=== PATIENT | female | born 1970 | race Caucasian/White ===

== ENCOUNTER 2024-04-16 10:44 | Emergency (ER) | payer OTHER ==
[2024-04-16 11:33] LABS: Absolute Lymphocytes (CBC) 1.3 K/uL (0.7-4.9); Absolute Monocytes 0.5 K/uL (0.1-1.3); Basophils % 0.6 % (0-1.3); Eosinophils % 0.9 % (0-4.4); Hematocrit 35.3 % (36.0-45.0); Hemoglobin 11.4 g/dL (12.0-15.0); Lymphocytes % 26.5 % (15.3-44.8); MCHC 32.2 g/dL (32.0-36.0); MCV 83.8 fL (80-100); Monocytes % 10.3 % (3.3-12.3); Neutrophils % 61.7 % (41.7-73.7); Platelets 158 thou/uL (152-406); RBC Red Blood Cell Count 4.21 M/uL (3.86-4.86); Red Cell Distribution Width 14.9 % (12.1-15.2)
[2024-04-16 11:58] LABS: ALT/SGPT 17 U/L (13-56); Albumin 3.5 g/dL (3.4-5.0); Albumin/Globulin Ratio 1.2 (1.1-1.8); Alkaline Phosphatase 58 U/L (45-117); Anion Gap 5.5 mEq/L (5.0-15.0); BUN Blood Urea Nitrogen 15 mg/dL (7-18); Bicarbonate 30 mEq/L (21-32); Bilirubin Total 0.3 mg/dL (0.2-1.0); Glomerular Filtration Rate 84 ml/min (=/>90); Glucose Level 63 mg/dL (74-106); Magnesium 2.2 mg/dL (1.6-2.4); Potassium 3.5 mEq/L (3.5-5.1); Protein, Total 6.5 g/dL (6.4-8.2); Sodium Level 142 mEq/L (136-145); Thyroid Stimulating Hormone 0.182 uIU/mL (0.358-3.740)
[2024-04-16 12:03] LABS: AST/SGOT < 10 U/L (15-37); Bilirubin Direct < 0.2 mg/dL (0-0.2); Bilirubin Indirect, Calculated 0.1 mg/dL (0.2-0.8); Troponin High Sensitivity < 3.0 pg/mL (<58.9)
--- NOTE | 2024-04-16 12:11 | RAD REPORT ---
Procedure: Chest Single View HISTORY: Palpitations COMPARISON: none FINDINGS: The lungs appear clear of acute infiltrate.. Lungs are moderately hyperaerated. No significant pleural effusion noted. The heart is normal size. IMPRESSION: No acute abnormality is displayed.
--- NOTE | 2024-04-16 12:36 | EDPHYS ---
Physician Documentation [facility] Name: Avril Avelar Age: 54 yrs Sex: Female : 1970 Arrival Date: 04/16/2024 Time: 10:44 Bed 6 Private MD: ED Physician Juan Almonte HPI: 04/16 11:14 This 54 yrs old Female presents to ER via Unassigned with complaints of Palpitations, rt Shortness Of Breath. 11:14 Patient presents to the ED with 2-weeks of palpitations, shortness of breath. This is rt intermittent, episodes lasting about 3 hours, increasing in frequency. Has an appoint with a oncology navigator for a monitor on Friday. States that her Apple Watch told her that she was in A-fib. Denies other acute complaints at this time, symptoms are moderate in severity, no other aggravating or elevating factors.. 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 - Infectious Disease History:: Denies. - Family history:: not pertinent. - Social history:: Smoking status: Patient denies any tobacco usage or history of. Patient uses alcohol, occasionally. ROS: 11:14 Constitutional: Negative for fever, chills, and weight loss, Abdomen/GI: Negative for rt abdominal pain, nausea, vomiting, diarrhea, and constipation, MS/Extremity: Negative for injury and deformity, Skin: Negative for injury, rash, and discoloration, Neuro: Negative for headache, weakness, numbness, tingling, and seizure, 11:14 Cardiovascular: Positive for palpitations, Negative for chest pain, 11:14 Respiratory: Positive for shortness of breath, Negative for cough, Exam: 11:14 Constitutional: This is a well developed, well nourished patient who is awake, alert, rt and in no acute distress. Head/Face: Normocephalic, atraumatic. Chest/axilla: Normal chest wall appearance and motion. Nontender with no deformity. No lesions are appreciated. Cardiovascular: Regular rate and rhythm with a normal S1 and S2. No gallops, murmurs, or rubs. Normal PMI, no JVD. No pulse deficits. Respiratory: Lungs have equal breath sounds bilaterally, clear to auscultation and percussion. No rales, rhonchi or wheezes noted. No increased work of breathing, no retractions or nasal flaring. Abdomen/GI: Soft, non-tender, with normal bowel sounds. No distension or tympany. No guarding or rebound. No evidence of tenderness throughout. Skin: Warm, dry with normal turgor. Normal color with no rashes, no lesions, and no evidence of cellulitis. MS/ Extremity: Pulses equal, no cyanosis. Neurovascular intact. Full, normal range of motion. Neuro: Awake and alert, GCS 15, oriented to person, place, time, and situation. Cranial nerves II-XII grossly intact. Motor strength 5/5 in all extremities. Sensory grossly intact. Cerebellar exam normal. Normal gait. 12:57 ECG was reviewed by the Attending Physician. rt Vital Signs: 11:15 BP 130 / 63; Pulse 84; Resp 17; Temp 97.6(O); Pulse Ox 99% on R/A; MAP 83 mmHg; Weight tm6 70.31 kg; Height 5 ft. 10 in. ; Pain 0/10; 12:39 BP 116 / 90; Pulse 68; Resp 15; Pulse Ox 100% ; ko1 11:15 Body Mass Index 22.24 (70.31 kg, 177.8 cm) tm6 11:15 Pain Scale: Adult tm6 MDM: 11:04 Medical Screening Exam initiated rt 12:52 Differential diagnosis: A-fib, hyperthyroidism, dysrhythmia, sinus tachycardia. Data rt reviewed: vital signs, nurses notes, lab test result(s), EKG, radiologic studies. Consideration of Admission/Observation Escalation of care including admission/observation considered. Patient is no dysrhythmia in the ED, labs reveal low TSH, otherwise unremarkable. She has no vital signs suggestive of thyrotoxicosis, this may be the etiology of her symptoms however, she was instructed to follow-up with her oncology navigator as previously scheduled and with her primary care provider for further management of her thyroid medications.. Independent interpretation of the following test(s) in the Emergency Department X-Ray: My interpretation is No infiltrate seen on my interpretation of x-ray images. Test considered but Not performed: CT: Low suspicion for pulmonary embolism, CT angiogram not indicated. Care significantly affected by the following chronic conditions: Hypothyroidism. Counseling: I had a detailed discussion with the patient and/or guardian regarding the historical points, exam findings, and any diagnostic results supporting the discharge/admit diagnosis, lab results, radiology results, the need for outpatient follow up, to return to the emergency department if symptoms worsen or persist or if there are any questions or concerns that arise at home. Response to treatment: the patient's symptoms have markedly improved after treatment. 04/16 11:11 Order name: Basic Metabolic Panel; Complete Time: 12:18 rt 04/16 11:11 Order name: CBC with Diff; Complete Time: 12:18 rt 04/16 11:11 Order name: LFT's; Complete Time: 12:18 rt 04/16 11:11 Order name: Magnesium; Complete Time: 12:18 rt 04/16 11:11 Order name: Troponin HS; Complete Time: 12:18 rt 04/16 11:11 Order name: TSH; Complete Time: 12:18 rt 04/16 11:11 Order name: XRAY Chest (1 view); Complete Time: 12:18 rt 04/16 11:11 Order name: EKG; Complete Time: 11: rt 04/16 11:11 Order name: Cardiac monitoring; Complete Time: rt 04/16 11:11 Order name: EKG - Nurse/Tech; Complete Time: rt 04/16 11:11 Order name: IV Saline Lock; Complete Time: rt 04/16 11:11 Order name: Labs collected and sent; Complete Time: rt 04/16 11:11 Order name: O2 Per Protocol; Complete Time: rt 04/16 11:11 Order name: O2 Sat Monitoring; Complete Time: : rt EC:57 Rate is 75 beats/min. Rhythm is regular, Normal Sinus Rhythm with No ectopy. Right axis rt deviation noted. [place] interval is normal. QRS interval is normal. QT interval is normal. No Q waves. No ST changes noted. Interpreted by me. Administered Medications: No medications were administered Disposition Summary: 04/16/24 12:35 Discharge Ordered Notes: Location: Home rt Problem: new rt Symptoms: have improved rt Condition: Stable rt Diagnosis - Palpitations rt Followup: rt - With: Private Physician - When: 2 - 3 days - Reason: Discharge Instructions: - Discharge Summary Sheet rt - Atrial Fibrillation rt - Palpitations rt Forms: - Medication Reconciliation Form rt - Antibiotic Education rt - Prescription Opioid Use rt - Patient Portal Instructions rt - Leadership Thank You Letter rt Signatures: Dispatcher [employer] EDJuan De La Cruz MD MD rt Emile Pedraza RN RN tm6
--- NOTE | 2024-04-16 12:36 | ER ---
Nurse's Notes [facility] Name: Avril Avelar Age: 54 yrs Sex: Female : 1970 Arrival Date: 04/16/2024 Time: 10:44 Bed 6 Private MD: Diagnosis: Palpitations Presentation: 04/16 11:15 Chief complaint: Patient states: heart palpitations x2 weeks, intermittent SOB x2 tm6 weeks. Coronavirus screen: Client denies travel out of the [place] in the last 14 days. Ebola Screen: Patient negative for fever greater than or equal to 101.5 degrees Fahrenheit, and additional compatible Ebola Virus Disease symptoms Patient denies exposure to infectious person. Patient denies travel to an Ebola-affected area in the 21 days before illness onset. No symptoms or risks identified at this time. Initial Sepsis Screen: Does the patient meet any 2 criteria? No. Patient's initial sepsis screen is negative. Does the patient have a suspected source of infection? No. Patient's initial sepsis screen is negative. Risk Assessment: Do you want to hurt yourself or someone else? Patient reports no desire to harm self or others. Onset of symptoms was April 02, 2024. 11:15 Method Of Arrival: Ambulatory tm6 11:15 Acuity: SHARON 3 tm6 Triage Assessment: 11:16 General: Appears in no apparent distress. Behavior is calm, cooperative. Pain: Denies tm6 pain. EENT: No signs and/or symptoms were reported regarding the EENT system. Neuro: Level of Consciousness is awake, alert, obeys commands, Oriented to person, place, time, situation. Cardiovascular: Reports palpitations, shortness of breath, since 2 weeks ago Patient's skin is warm and dry. Respiratory: Reports shortness of breath since two weeks ago Onset: The symptoms/episode began/occurred 2 weeks ago, the patient has mild shortness of breath. GI: No signs and/or symptoms were reported involving the gastrointestinal system. Abdomen is flat, non-distended. : No signs and/or symptoms were reported regarding the genitourinary system. Derm: No signs and/or symptoms reported regarding the dermatologic system. Musculoskeletal: No signs and/or symptoms reported regarding the musculoskeletal system. 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 - Infectious Disease History:: Denies. - Family history:: not pertinent. - Social history:: Smoking status: Patient denies any tobacco usage or history of. Patient uses alcohol, occasionally. Screenin:15 [facility] ED Fall Risk Assessment (Adult) History of falling in the last 3 months, bp including since admission No falls in past 3 months (0 pts) Confusion or Disorientation No (0 pts) Intoxicated or Sedated No (0 pts) Impaired Gait No (0 pts) Mobility Assist Device Used No (0 pt) Altered Elimination No (0 pt) Score/Fall Risk Level 0 - 2 = Low Risk Oriented to surroundings. Abuse screen: Denies threats or abuse. Denies injuries from another. Nutritional screening: No deficits noted. Tuberculosis screening: No symptoms or risk factors identified. Assessment: 11:15 General: Appears in no apparent distress. Behavior is cooperative, appropriate for age, bp anxious. Cardiovascular: Rhythm is sinus rhythm. Respiratory: Airway is patent Respiratory effort is even, unlabored, Breath sounds are clear bilaterally. Vital Signs: 11:15 BP 130 / 63; Pulse 84; Resp 17; Temp 97.6(O); Pulse Ox 99% on R/A; MAP 83 mmHg; Weight tm6 70.31 kg; Height 5 ft. 10 in. ; Pain 0/10; 12:39 BP 116 / 90; Pulse 68; Resp 15; Pulse Ox 100% ; ko1 11:15 Body Mass Index 22.24 (70.31 kg, 177.8 cm) tm6 11:15 Pain Scale: Adult tm6 ED Course: 10:48 Patient arrived in ED. im 10:48 Juan Almonte MD is Attending Physician. rt 11:03 Gregory Fontanez, ELIZ is Primary Nurse. bp 11:15 Provided Education on: N/A. bp 11:16 Triage completed. tm6 11:16 Arm band placed on right wrist. tm6 11:19 Patient has correct armband on for positive identification. Placed in gown. Bed in low mb4 position. Call light in reach. Side rails up X 1. Door closed. Warm blanket given. Client placed on continuous cardiac and pulse oximetry monitoring. NIBP monitoring applied. environmental monitoring technician on. Pulse ox on. NIBP on. 11:19 EKG done, by ED staff, reviewed by Juan Almonte MD. mb4 11:30 Initial lab(s) drawn, by me, sent to lab. Inserted saline lock: 20 gauge in right mb4 antecubital area, using aseptic technique. Blood collected. Flushed with 10 mL NS. 11:30 TSH Sent. mb4 11:30 Basic Metabolic Panel Sent. mb4 11:30 CBC with Diff Sent. mb4 11:30 LFT's Sent. mb4 11:30 Magnesium Sent. mb4 11:30 Troponin HS Sent. mb4 11:58 XRAY Chest (1 view) In Process Unspecified. EDMS 12:44 No provider procedures requiring assistance completed. IV discontinued, intact, me1 bleeding controlled, No redness/swelling at site. Pressure dressing applied. Administered Medications: No medications were administered Medication: 12:44 VIS not applicable for this client. me1 Outcome: 12:35 Discharge ordered by MD. rt 12:44 Discharged to home ambulatory, me1 12:44 Condition: stable 12:44 Discharge instructions given to patient, Instructed on discharge instructions, follow up and referral plans. Demonstrated understanding of instructions, follow-up care, 12:44 Patient left the ED. me1 Signatures: Dispatcher [employer] EDGregory Hassan, RN RN Kailee Singh mb4 Patricia Wallace, RN RN ko1 Juan Almonte MD MD rt Tiffanie Alegria Michelle, RN RN me1 Emile Pedraza RN RN tm6
[2024-04-16 13:35] VITALS: TEMP 97.6
[2024-04-16 13:36] VITALS: BP 116/90; O2SAT 100
--- NOTE | 2024-04-19 10:20 | EKG ---
Test Date: 2024-04-16 Test Time: 11:15:34 Drug Abuse Counselor: MB MEASUREMENT RESULTS: Intervals: Rate: 75 TN: 182 QRSD: 86 QT: 386 QTc: 431 Gonzales: P: 81 TN: 182 QRS: 97 T: 85 INTERPRETIVE STATEMENTS: Normal sinus rhythm Rightward axis Septal infarct, age undetermined Abnormal ECG No previous ECG available for comparison Electronically Signed On 04-19-24 10:19:54 PATENT LEATHER SORTER by Kapil Munson
== END 2024-04-16 12:44 | disposition home or self-care (01) ==
LOC: ER 10:44
DX: R00.2 Palpitations (principal); R06.02 Shortness of breath; Z28.310 Unvaccinated for COVID-19
CPT/HCPCS: 36415; 71045; 80048; 80076; 83735; 84443; 84484; 85025; 93005; 99284